=== PATIENT | male | born 1965 | race Caucasian/White ===

== ENCOUNTER 2023-09-26 05:33 | Day surgery (SDC) | payer BC ==
[2023-09-23 10:23] VITALS: BMI 32.8
[2023-09-26] MEDS ORDERED: droPERidol 5 MG/2 ML VIAL IVP ONE (05:46)
[2023-09-26] MEDS ORDERED: LIDOCAINE 1% (10MG/ML) FOR IV START INTRADERMA PRN (05:46)
[2023-09-26] MEDS: LACTATED RINGERS 1,000 ML IV SCH (06:00)
[2023-09-26] MEDS: ONDANSETRON 4 MG/2 ML VIAL IVP ONE (06:05)
[2023-09-26] MEDS: DEXAMETHASONE SOD PHOSPHATE 4 MG/ML 1 ML VIAL IV ONE (06:05)
[2023-09-26] MEDS: MIDAZOLAM 2 MG/2 ML VIAL IVP ONE (06:38)
[2023-09-26] MEDS ORDERED: LIDOCAINE 1% INJ 10MG/ML (20 ML MDV) ONE (06:54)
[2023-09-26] MEDS ORDERED: SUCCINYLCHOLINE CHLORIDE 200 MG/10 ML VIAL IV ONE (06:54)
[2023-09-26] MEDS ORDERED: KETOROLAC 15 MG/ML 1 ML VIAL ONE (06:54)
[2023-09-26] MEDS ORDERED: PHENYLEPHRINE 10 MG/ML VIAL ONE (06:54)
[2023-09-26] MEDS ORDERED: SODIUM CHLORIDE 0.9% (PF) 10 ML VIAL ONE (06:54)
[2023-09-26] MEDS ORDERED: ROCURONIUM 10 MG/ML (5 ML VIAL) IV ONE (06:54)
[2023-09-26] MEDS ORDERED: ROPIVACAINE 5 MG/ML 30 ML VIAL ONE (06:54)
[2023-09-26] MEDS ORDERED: MIDAZOLAM 2 MG/2 ML VIAL ONE (06:54)
[2023-09-26] MEDS ORDERED: PROPOFOL 10 MG/ML 20 ML VIAL IV ONE (06:54)
[2023-09-26] MEDS ORDERED: DEXAMETHASONE SOD PHOSPHATE 4 MG/ML 1 ML VIAL ONE (06:54)
[2023-09-26] MEDS ORDERED: HYDROmorphone 0.5 MG/0.5 ML SYRINGE IVP PRN (07:00)
[2023-09-26] MEDS: ceFAZolin 1,000 MG in SODIUM CHLORIDE 0.9% 1,000 ML IRRIGATION ONE (07:15)
--- NOTE | 2023-09-26 08:24 | P.OP ---
Date of Procedure: 09/26/23 Preoperative Diagnosis: Achilles tendinitis right ankle Postoperative Diagnosis: Same Procedure(s) Performed: Secondary repair right Achilles tendon Implants: Arthrex MIS Achilles speed bridge implants Anesthesia: MILLIEA Surgeon: Greg Medina Estimated Blood Loss (ml): 0 Pathology: none sent Condition: stable Disposition: PACU Description of Procedure: Prior to the patient being brought to the operating room, anesthesia administered nerve block on the surgical extremity. Once completed, the patient was taken into the operating room. Timeout was taken to confirm correct patient identifiers, correct laterality of surgery, and correct procedure. When all staff in the room were in agreement with the timeout, the patient was induced and placed under general anesthesia. The patient was then placed in the prone position on the operating room table. Appropriate padding was placed beneath the patient's face as well as in the thoracic area. Once anesthesia was satisfied with the patient positioning, a well-padded tourniquet was placed on the thigh. Then the leg was prepped and draped in the usual manner. The leg was exsanguinated and the tourniquet inflated to 250 mmHg. Attention was directed to the posterior aspect of the calcaneus at the Achilles insertion. Utilizing fluoroscopy, the insertion point was marked transversely across the heel. 4 small incisions are made in the 10:00 2:00 5:00 and 7:00 positions. 2 incisions were distal to the insertion and the other to proximal. An elevator was used to create tissue planes tween the skin and Achilles tendon between the 4 incisions. And then deeper dissection was done to the proximal incisions between the Achilles tendon and the calcaneus. A 4 mm bur was then inserted into the more distal incisions. The bur was to irrigation to help prevent damage to the bone. The bur was used to resect the posterior superior aspect of the calcaneus and then advance it to the calcification in the Achilles tendon. Once adequate resection was completed left which was confirmed under fluoroscopy, the bur was removed and then the area was thoroughly irrigated to remove any bony fragments. Through the more distal holes, K wires for the placement anchors were placed into the calcaneus. Over drilling was completed and then the holes were both tapped. Attention then directed to the more proximal holes were drill holes for the combination fiber Prince anchors and speed bridge suture were made. This is done utilizing proper technique, then the anchors were inserted through the staffing analyst and then impacted to proper depth. The suture was deployed and the staffing analyst removed. The suture for the speed bridge which was attached to a needle, was passed through the incision due to the Achilles and out the skin. This was repeated with a working stitch through a separate needle. Then this is done on the opposite side in the same manner. The working stitches for the fiber Juan anchors were then passed medial to lateral through the superficial skin plane utilizing the hook passer. Once the sutures were pulled through the were looped through the pull-through stitch which was then carefully tensioned through the anchor until the stitch was free. Both sutures were passed first before full tightening. Then both sutures were tensioned which tied the tendon for the ripstop back to the calcaneus. The telltale puckering of the skin was noted. The working sutures were then cut and then the needles cut off the speed bridge suture. Utilizing a combination of the hook and a hemostat one stitch was placed through the ipsilateral distal hole and the other through the contralateral distal hole in the central repeated on both sides so that the classic speed bridge construct was achieved. The K wires were removed and then the arms of the suture were placed through the eyelet of the 3.9 mm swivel lock anchor. The staffing analyst was aligned with the drill hole in the calcaneus, and with the suture under full tension, the anchor was inserted and and advanced to proper depth within the calcaneus. The area was palpated to indicate that the Achilles was fully intact and attached to the posterior aspect of the calcaneus. The wounds were thoroughly irrigated with antibiotic saline. Each incision was closed with 3-0 nylon. The incision was covered with a jumpstart dressing and then a bulky dry dressing. The tourniquet was released and capillary refill return to all digits on the left foot. The patient was then placed in a well-padded, well molded plaster posterior mold/sugar tong splint. Ankle was held in neutral position until the splint was fully dried. The patient then rolled onto the transfer table where anesthesia was reversed and was taken recovery with vital signs stable
[2023-09-26 08:57] VITALS: TEMP 97
[2023-09-26] MEDS: LACTATED RINGERS 1,000 ML IV ONE (09:05)
[2023-09-26] MEDS ORDERED: hydrALAZINE HCL 20 MG/ML 1 ML VIAL ONE (09:38)
[2023-09-26] MEDS: hydrALAZINE HCL 20 MG/ML 1 ML VIAL IVP ONE (09:43)
--- NOTE | 2023-09-26 09:55 | P.ANPRN ---
Procedure Note - Anesthesia - Nerve Block Performed Right Adductor Canal Single Time Out Performed: Yes (0635) Date of Procedure: 09/26/23 Procedure Start Time: 06:35 Procedure Stop Time: 06:47 Location of Patient: PreOp Indication: Acute Post-Operative Pain, Requested by Surgeon Sedation Type: Sedate with meaningful contact maintained Preparation: Sterile Prep, Sterile Dressing Position: Supine Catheter: None Needle Types: Pajunk Needle Gauge: 21 Ultrasound used to visualize needle placement: Yes Ultrasound used to observe medication spread: Yes Injectate: 0.5% Ropivacaine (see comment for volume) Blood Aspirated: No Pain Paresthesia on Injection Noted: No Resistance on Injection: Normal Image Stored and Saved: Yes Events: Uneventful and Well Tolerated (20 mL of block solution containing 10 ML of 0.5% ropivacaine mixed with 10 ML of preservative-free normal saline)
[2023-09-26 10:06] VITALS: BP 150/91; PULSE 67; RESP 18
--- NOTE | 2023-09-26 14:44 | P.ANPRN ---
Procedure Note - Anesthesia - Nerve Block Performed Right Popliteal Single Time Out Performed: Yes (0635) Date of Procedure: 09/26/23 Procedure Start Time: 06:35 Procedure Stop Time: 06:47 Location of Patient: PreOp Indication: Acute Post-Operative Pain, Requested by Surgeon Sedation Type: Sedate with meaningful contact maintained Preparation: Sterile Prep, Sterile Dressing Position: Left Lateral Catheter: None Needle Types: Pajunk Ultrasound used to visualize needle placement: Yes Ultrasound used to observe medication spread: Yes Injectate: 0.5% Ropivacaine (see comment for volume) (20 ML of 0.5% ropivacaine) Blood Aspirated: No Pain Paresthesia on Injection Noted: No Resistance on Injection: Normal Image Stored and Saved: Yes Events: Uneventful and Well Tolerated
== END 2023-09-26 10:30 | disposition home or self-care (01) ==
LOC: OR 05:33
PROVIDERS: ATTEND Podiatrist
DX: M76.61 Achilles tendinitis, right leg (principal); G89.18 Other acute postprocedural pain; I10 Essential (primary) hypertension; F10.90 Alcohol use, unspecified, uncomplicated; M77.31 Calcaneal spur, right foot; M77.32 Calcaneal spur, left foot; M21.6X1 Other acquired deformities of right foot; M21.6X2 Other acquired deformities of left foot; K21.9 Gastro-esophageal reflux disease without esophagitis; J45.909 Unspecified asthma, uncomplicated; Z83.3 Family history of diabetes mellitus; Z88.2 Allergy status to sulfonamides; Z82.49 Family history of ischemic heart disease and other diseases of the circulatory system; Z86.73 Personal history of transient ischemic attack (TIA), and cerebral infarction without residual deficits; Z79.899 Other long term (current) drug therapy; Z98.890 Other specified postprocedural states
CPT/HCPCS: 64447; 64445; 27654; C1713; J2250; J0330; J0360; J1100; J0690 ×2; J2405; J2001; J2795; J1885; J2704; J2371

== ENCOUNTER → 2024-07-02 | Day surgery (SDC) | payer BC ==
[2024-07-01 10:31] VITALS: BMI 33.3
[~2024-07-02] MED LIST: ACETAMINOPHEN IV (For NPO) 1,000 MG/100 ML VIAL ONE; DEXAMETHASONE SOD PHOSPHATE 4 MG/ML 1 ML VIAL ONE; HYDROmorphone 0.5 MG/0.5 ML SYRINGE IVP PRN; KETAMINE HCL IN 0.9 % NACL 50 MG/5 ML SYRINGE ONE; KETOROLAC 15 MG/ML 1 ML VIAL ONE; LIDOCAINE 1% (10MG/ML) FOR IV START INTRADERMA PRN; LIDOCAINE 1% INJ 10MG/ML (20 ML MDV) ONE; PHENYLEPHRINE-0.9% NACL SYG 1,000 MCG/10 ML SYRINGE ONE; PROPOFOL 10 MG/ML 20 ML VIAL IV ONE; ROPIVACAINE 5 MG/ML 30 ML VIAL ONE; SUCCINYLCHOLINE CHLORIDE 200 MG/10 ML VIAL IV ONE; WATER FOR INJECTION, STERILE 10 ML VIAL IV ONE; droPERidol 5 MG/2 ML VIAL IVP ONE; ePHEDrine 50 MG/ML 1 ML VIAL ONE
[2024-07-02] MEDS: IV FLUID CONTINUATION 1,000 ML IV ONE (06:15)
[2024-07-02] MEDS: ONDANSETRON 4 MG/2 ML VIAL IVP ONE (06:41)
[2024-07-02] MEDS: LACTATED RINGERS 1,000 ML IV SCH (06:41)
[2024-07-02] MEDS: DEXAMETHASONE SOD PHOSPHATE 4 MG/ML 1 ML VIAL IV ONE (06:42)
--- NOTE | 2024-07-02 07:11 | P.ANPRN ---
Procedure Note - Anesthesia - Nerve Block Performed Left Popliteal Single Time Out Performed: Yes Date of Procedure: 07/02/24 Procedure Start Time: 06:54 Procedure Stop Time: 06:59 Location of Patient: PreOp Indication: Acute Post-Operative Pain, Analgesia, Requested by Surgeon Sedation Type: Sedate with meaningful contact maintained Preparation: Sterile Prep Position: Right Lateral Catheter: None Needle Types: Pajunk Needle Gauge: 21 Ultrasound used to visualize needle placement: Yes Ultrasound used to observe medication spread: Yes Injectate: 0.5% Ropivacaine (see comment for volume) (Ropiv 20ml+[id number]) Blood Aspirated: No Pain Paresthesia on Injection Noted: No Resistance on Injection: Normal Image Stored and Saved: Yes Events: Uneventful and Well Tolerated
[2024-07-02] MEDS: MIDAZOLAM 2 MG/2 ML VIAL IV STA (07:12)
--- NOTE | 2024-07-02 07:13 | P.ANPRN ---
Procedure Note - Anesthesia - Nerve Block Performed Left Adductor Canal Single Time Out Performed: Yes Date of Procedure: 07/02/24 Procedure Start Time: 06:59 Procedure Stop Time: 07:04 Location of Patient: PreOp Indication: Acute Post-Operative Pain, Analgesia, Requested by Surgeon Sedation Type: Sedate with meaningful contact maintained Preparation: Sterile Prep Position: Supine Catheter: None Needle Types: Pajunk Needle Gauge: 21 Ultrasound used to visualize needle placement: Yes Ultrasound used to observe medication spread: Yes Injectate: 0.5% Ropivacaine (see comment for volume) ([id number]) Blood Aspirated: No Pain Paresthesia on Injection Noted: No Resistance on Injection: Normal Image Stored and Saved: Yes Events: Uneventful and Well Tolerated
[2024-07-02 09:19] VITALS: TEMP 97
--- NOTE | 2024-07-02 09:25 | P.OP ---
Date of Procedure: 07/02/24 Preoperative Diagnosis: 1. Achilles insertional tendinitis left ankle 2. Calcaneal spur left foot Postoperative Diagnosis: 1. Same 2. Same Procedure(s) Performed: 1. Secondary repair left Achilles tendon 2. Excision of calcaneal spur left foot Implants: Arthrex Achilles speedbridge with ripstop Anesthesia: IHSAN Surgeon: Greg Medina Estimated Blood Loss (ml): 1 Pathology: none sent Condition: stable Disposition: PACU Description of Procedure: Prior to the patient being brought to the operating room, anesthesia administered nerve block on the surgical extremity. Once completed, the patient was taken into the operating room. Timeout was taken to confirm correct patient identifiers, correct laterality of surgery, and correct procedure. When all staff in the room were in agreement with the timeout, the patient was induced and placed under general anesthesia. The patient was then placed in the prone position on the operating room table. Appropriate padding was placed beneath the patient's face as well as in the thoracic area. Once anesthesia was satisfied with the patient positioning, a well-padded tourniquet was placed on the thigh. Then the leg was prepped and draped in the usual manner. The leg was exsanguinated and the tourniquet inflated to 250 mmHg. Attention was directed to the posterior aspect of the calcaneus at the Achilles insertion. Utilizing fluoroscopy, the insertion point was marked transversely across the heel. 4 small incisions are made in the 10:00 2:00 5:00 and 7:00 positions. 2 incisions were distal to the insertion and the other to proximal. An elevator was used to create tissue planes tween the skin and Achilles tendon between the 4 incisions. And then deeper dissection was done to the proximal incisions between the Achilles tendon and the calcaneus. A 4 mm bur was then inserted into the more distal incisions. The bur was to irrigation to help prevent damage to the bone. The bur was used to resect the posterior superior aspect of the calcaneus and then advance it to the calcification in the Achilles tendon. Once adequate resection was completed, which was confirmed under fluoroscopy, the bur was removed and then the area was thoroughly irrigated to remove any bony fragments. Through the more distal holes, K wires for the placement anchors were placed into the calcaneus. Over drilling was completed and then the holes were both tapped. Attention then directed to the more proximal holes were drill holes for the combination fiber Prince anchors and speed bridge suture were made. This is done utilizing proper technique, then the anchors were inserted through the digital intern and then impacted to proper depth. The suture was deployed and the digital intern removed. The suture for the speed bridge which was attached to a needle, was passed through the incision due to the Achilles and out the skin. This was repeated with a working stitch through a separate needle. Then this is done on the opposite side in the same manner. The working stitches for the fiber Juan anchors were then passed medial to lateral through the superficial skin plane utilizing the hook passer. Once the sutures were pulled through the were looped through the pull-through stitch which was then carefully tensioned through the anchor until the stitch was free. Both sutures were passed first before full tightening. Then both sutures were tensioned which tied the tendon for the ripstop back to the calcaneus. The telltale puckering of the skin was noted. The working sutures were then cut and then the needles cut off the speed bridge suture. Utilizing a combination of the hook and a hemostat one stitch was placed through the ipsilateral distal hole and the other through the contralateral distal hole in the central repeated on both sides so that the classic speed bridge construct was achieved. The K wires were removed and then the arms of the suture were placed through the eyelet of the 3.9 mm swivel lock anchor. The digital intern was aligned with the drill hole in the calcaneus, and with the suture under full tension, the anchor was inserted and and advanced to proper depth within the calcaneus. The area was palpated to indicate that the Achilles was fully intact and attached to the posterior aspect of the calcaneus. The wounds were thoroughly irrigated with antibiotic saline. Each incision was closed with 3-0 nylon. The incision was covered with a jumpstart dressing and then a bulky dry dressing. The tourniquet was released and capillary refill return to all digits on the left foot. The patient was then placed in a well-padded, well molded plaster posterior mold/sugar tong splint. Ankle was held in neutral position until the splint was fully dried. The patient then rolled onto the transfer table where anesthesia was reversed and was taken recovery with vital signs stable
[2024-07-02 10:28] VITALS: BP 146/89; PULSE 78; RESP 14
== END | disposition home or self-care (01) ==
LOC: OR 05:50
PROVIDERS: ATTEND Podiatrist
DX: M76.62 Achilles tendinitis, left leg (principal); M77.32 Calcaneal spur, left foot; E78.5 Hyperlipidemia, unspecified; J45.909 Unspecified asthma, uncomplicated; N28.9 Disorder of kidney and ureter, unspecified; I67.9 Cerebrovascular disease, unspecified; F32.A Depression, unspecified; K21.9 Gastro-esophageal reflux disease without esophagitis; Z90.89 Acquired absence of other organs; Z88.2 Allergy status to sulfonamides; Z91.040 Latex allergy status; Z88.8 Allergy status to other drugs, medicaments and biological substances; Z79.51 Long term (current) use of inhaled steroids; Z79.899 Other long term (current) drug therapy
CPT/HCPCS: 64447; 64445; 27650; C1713; J2250; J0330; J1100; J0690; J2405; J2003; J2795; J0131; J1885; J2704; J2371

== ENCOUNTER → 2024-07-29 | Outpatient (CLI) | payer BC ==
--- NOTE | 2024-07-29 21:00 | US ---
EXAMINATION TYPE: US venous doppler duplex LE LT DATE OF EXAM: 07/29/2024 3:04 PM COMPARISON: NONE CLINICAL INDICATION: Male, 58 years old with history of [id number] ENCOUNTER FOR SURG AFTERCARE; Achilles surgery Jul 02. Calf pain. Not on blood thinners. No swelling or redness, Pain TECHNIQUE: The lower extremity deep venous system is examined utilizing real time linear array sonog ben with graded compression, color doppler sonography, and spectral doppler. SIDE PERFORMED: Left FINDINGS: VESSELS IMAGED: Common Femoral Vein Deep Femoral Vein Greater Saphenous Vein * Femoral Vein Popliteal Vein Small Saphenous Vein * Proximal Calf Veins Posterior tibial veins (* superficial vessels) Left Leg: Negative for DVT, Color Doppler imaging shows patency of the vessels. Spectral waveforms a re within normal limits. IMPRESSION: No evidence for DVT within the left lower extremity. [facility], Workstation: [id number], 07/29/2024 8:58 PM
== END | disposition home or self-care (01) ==
LOC: RADUSWWP 14:23
PROVIDERS: ATTEND Podiatrist
DX: M79.662 Pain in left lower leg (principal); Z48.89 Encounter for other specified surgical aftercare